=== PATIENT | male | born 1975 | race Caucasian/White ===

== ENCOUNTER 2016-11-18 12:43 | Emergency (ER) | payer OTHER ==
[2016-11-18] MEDS ORDERED: SODIUM CHLORIDE 0.9% 500 ML IV STA (13:05)
--- NOTE | 2016-11-18 13:08 | ED ---
General Adult HPI - General Chief complaint: Arrhythmia/Palpitations Stated complaint: Irregular Heartbeats Time Seen by Provider: 11/18/16 13:00 Source: patient, RN notes reviewed Mode of arrival: ambulatory Limitations: no limitations - History of Present Illness Initial comments: This is a 41-year-old male who presents emergency Department with a past medical history significant for high cholesterol and high blood pressure and a history of arrhythmias. Patient states today he felt his heart racing and was having much more frequently than normal psychiatric emergency department. Patient states that the episodes, last about 10 seconds and then they subsided. Patient does not know the name of a specific arrhythmia that he has been diagnosed with but he has not been placed on any medications for it. Patient denies any chest pain today patient denies illicit breathing or shortness of breath. Patient denies any episodes of dizziness lightheadedness or near syncopal episodes. Patient denies headache patient denies numbness weakness. Patient denies any recent fever or chills or cough. Patient denies any leg swelling or calf tenderness. - Related Data Previous Rx's Medication Instructions Recorded Metoprolol Tartrate 25 mg PO DAILY #30 tab 11/18/16 Allergies Allergy/AdvReac Type Severity Reaction Status Date / Time No Known Allergies Allergy Verified 11/18/16 12:59 Review of Systems ROS Statement: Those systems with pertinent positive or pertinent negative responses have been documented in the HPI. ROS Other: All systems not noted in ROS Statement are negative. Past Medical History Past Medical History: Hyperlipidemia, Hypertension History of Any Multi-Drug Resistant Organisms: None Reported Additional Past Surgical History / Comment(s): sinus surgery, knee surgery Past Psychological History: No Psychological Hx Reported Smoking Status: Former smoker Past Alcohol Use History: None Reported Past Drug Use History: None Reported General Exam - General Exam Comments Initial Comments: GENERAL: Patient is well-developed and well-nourished. Patient is nontoxic and well- hydrated and is in mild distress. ENT: Neck is soft and supple. No significant lymphadenopathy is noted. Oropharynx is clear. Moist mucous membranes. Neck has full range of motion without eliciting any pain. EYES: The sclera were anicteric and conjunctiva were pink and moist. Extraocular movements were intact and pupils were equal round and reactive to light. Eyelids were unremarkable. PULMONARY: Unlabored respirations. Good breath sounds bilaterally. No audible rales rhonchi or wheezing was noted. CARDIOVASCULAR: There is a regular rate and rhythm without any murmurs gallops or rubs. ABDOMEN: Soft and nontender with normal bowel sounds. No palpable organomegaly was noted. There is no palpable pulsatile mass. SKIN: Skin is clear with no lesions or rashes and otherwise unremarkable. NEUROLOGIC: Patient is alert and oriented x3. Cranial nerves II through XII are grossly intact. Motor and sensory are also intact. Normal speech, volume and content. Symmetrical smile. MUSCULOSKELETAL: Normal extremities with adequate strength and full range of motion. No lower extremity swelling or edema. No calf tenderness. LYMPHATICS: No significant lymphadenopathy is noted PSYCHIATRIC: Normal psychiatric evaluation. Normal interpersonal interactions appears functionally intact in deals appropriately with others. No signs of depression. No signs of anxiety. Limitations: no limitations Course Vital Signs 11/18/16 11/18/16 11/18/16 12:59 13:36 13:40 Temperature 98.6 F Pulse Rate 66 71 Pulse Rate [ 79 Bilateral Radial] Respiratory 16 15 Rate Blood Pressure 143/84 132/85 O2 Sat by Pulse 98 100 Oximetry Medical Decision Making - Medical Decision Making EKG shows a normal sinus rhythm at 70 bpm HI interval 124 QRS is 98 QT interval 368 QTC is 397. Patient's EKG shows no ST segment elevation or depression or T wave abnormalities are noted. Patient had this sensation of a palpitation again so we were able to get a EKG EKG showed a rate of about 150 beats a minute which was consistent with a flutter though it read it as a atrial fibrillation I do believe the patient was in a flutter with a 2-[address] Cleary in the EKG he thought EKG showed SVT the patient kept going in and out of it while in the emergency department. Dr. López want to see him in his office so I sent the patient out with a prescription of metoprolol - Lab Data Result diagrams: 11/18/16 13:10 11/18/16 13:10 Lab Results 11/18/16 11/18/16 11/18/16 Range/Units 13:10 13:10 13:10 WBC 14.4 H (3.8-10.6) k/uL RBC 5.05 (4.30-5.90) m/uL Hgb 16.7 (13.0-17.5) gm/dL Hct 47.7 (39.0-53.0) % MCV 94.4 (80.0-100.0) fL MCH 33.1 (25.0-35.0) pg MCHC 35.0 (31.0-37.0) g/dL RDW 12.1 (11.5-15.5) % Plt Count 251 (150-450) k/uL Neutrophils % 77 % Lymphocytes % 16 % Monocytes % 4 % Eosinophils % 1 % Basophils % 1 % Neutrophils # 11.0 H (1.3-7.7) k/uL Lymphocytes # 2.3 (1.0-4.8) k/uL Monocytes # 0.6 (0-1.0) k/uL Eosinophils # 0.2 (0-0.7) k/uL Basophils # 0.1 (0-0.2) k/uL PT (9.0-12.0) sec INR (<1.1) APTT (22.0-30.0) sec Sodium 142 (137-145) mmol/L Potassium 4.4 (3.5-5.1) mmol/L Chloride 102 (98-107) mmol/L Carbon Dioxide 24 (22-30) mmol/L Anion Gap 16 mmol/L BUN 14 (9-20) mg/dL Creatinine 0.90 (0.66-1.25) mg/dL Est GFR (MDRD) Af Amer >60 (>60 ml/min/1.73 sqM) Est GFR (MDRD) Non-Af >60 (>60 ml/min/1.73 sqM) Glucose 88 (74-99) mg/dL Calcium 9.9 (8.4-10.2) mg/dL Magnesium 2.0 (1.6-2.3) mg/dL Total Bilirubin 0.6 (0.2-1.3) mg/dL AST 29 (17-59) U/L ALT 49 (21-72) U/L Alkaline Phosphatase 79 (38-126) U/L Total Creatine Kinase 126 (55-170) U/L CK-MB (CK-2) 0.8 (0.0-2.4) ng/mL CK-MB (CK-2) Rel Index 0.6 Troponin I <0.012 (0.000-0.034) ng/mL Total Protein 7.7 (6.3-8.2) g/dL Albumin 4.7 (3.5-5.0) g/dL TSH 1.480 (0.465-4.680) mIU/L Free T4 0.90 (0.78-2.19) ng/dL 11/18/16 Range/Units 13:10 WBC (3.8-10.6) k/uL RBC (4.30-5.90) m/uL Hgb (13.0-17.5) gm/dL Hct (39.0-53.0) % MCV (80.0-100.0) fL MCH (25.0-35.0) pg MCHC (31.0-37.0) g/dL RDW (11.5-15.5) % Plt Count (150-450) k/uL Neutrophils % % Lymphocytes % % Monocytes % % Eosinophils % % Basophils % % Neutrophils # (1.3-7.7) k/uL Lymphocytes # (1.0-4.8) k/uL Monocytes # (0-1.0) k/uL Eosinophils # (0-0.7) k/uL Basophils # (0-0.2) k/uL PT 10.5 (9.0-12.0) sec INR 1.0 (<1.1) APTT 27.1 (22.0-30.0) sec Sodium (137-145) mmol/L Potassium (3.5-5.1) mmol/L Chloride (98-107) mmol/L Carbon Dioxide (22-30) mmol/L Anion Gap mmol/L BUN (9-20) mg/dL Creatinine (0.66-1.25) mg/dL Est GFR (MDRD) Af Amer (>60 ml/min/1.73 sqM) Est GFR (MDRD) Non-Af (>60 ml/min/1.73 sqM) Glucose (74-99) mg/dL Calcium (8.4-10.2) mg/dL Magnesium (1.6-2.3) mg/dL Total Bilirubin (0.2-1.3) mg/dL AST (17-59) U/L ALT (21-72) U/L Alkaline Phosphatase (38-126) U/L Total Creatine Kinase (55-170) U/L CK-MB (CK-2) (0.0-2.4) ng/mL CK-MB (CK-2) Rel Index Troponin I (0.000-0.034) ng/mL Total Protein (6.3-8.2) g/dL Albumin (3.5-5.0) g/dL TSH (0.465-4.680) mIU/L Free T4 (0.78-2.19) ng/dL Disposition Clinical Impression: Supraventricular tachycardia Disposition: HOME SELF-CARE Condition: Good Instructions: Supraventricular Tachycardia (ED) Prescriptions: Metoprolol Tartrate 25 mg PO DAILY #30 tab Time of Disposition: 14:42
[2016-11-18 13:24] LABS: Basophils # (A) 0.1 k/uL (0-0.2); Basophils % (A) 1 %; CH 33.1; CHCM 35.2; Eosinophils # (A) 0.2 k/uL (0-0.7); Eosinophils % (A) 1 %; HCT 47.7 % (39.0-53.0); HDW 2.45; HGB 16.7 gm/dL (13.0-17.5); Luc # (Auto) 0.25; Luc % (Auto) 2; Lymphocytes # (A) 2.3 k/uL (1.0-4.8); Lymphocytes % (A) 16 %; MCH 33.1 pg (25.0-35.0); MCV 94.4 fL (80.0-100.0); Mean Platelet Volume 7.9; Monocytes # (A) 0.6 k/uL (0-1.0); Monocytes % (A) 4 %; Neutrophils % (A) 77 %; RBC 5.05 m/uL (4.30-5.90); RDW 12.1 % (11.5-15.5); WBC 14.4 k/uL (3.8-10.6); WBC (Perox) 13.12
--- NOTE | 2016-11-18 13:30 | XR ---
EXAMINATION TYPE: XR chest 2V DATE OF EXAM: 11/18/2016 1:27 PM COMPARISON: NONE HISTORY: Dysrhythmia today. TECHNIQUE: Frontal and lateral views of the chest are obtained. FINDINGS: There is no focal air space opacity, pleural effusion, or pneumothorax seen. The cardiac silhouette size is within normal limits. The osseous structures are intact. IMPRESSION: No acute cardiopulmonary process.
[2016-11-18 13:33] LABS: Partial Thromboplastin Time 27.1 sec (22.0-30.0); Prothrombin Time 10.5 sec (9.0-12.0)
[2016-11-18 13:37] LABS: ALT 49 U/L (21-72); AST 29 U/L (17-59); Alkaline Phosphatase 79 U/L (38-126); Anion Gap 16 mmol/L; Blood Urea Nitrogen 14 mg/dL (9-20); Calcium 9.9 mg/dL (8.4-10.2); Carbon Dioxide 24 mmol/L (22-30); Chloride 102 mmol/L (98-107); Glucose 88 mg/dL (74-99); Non-African American GFR(MDRD) >60 (>60 ml/min/1.73 sqM); Potassium 4.4 mmol/L (3.5-5.1); Sodium 142 mmol/L (137-145); Total Bilirubin 0.6 mg/dL (0.2-1.3); Total Protein 7.7 g/dL (6.3-8.2)
[2016-11-18 13:50] LABS: Creatine Kinase 126 U/L (55-170)
[2016-11-18 14:01] LABS: Creatine Kinase MB 0.8 ng/mL (0.0-2.4); Troponin I <0.012 ng/mL (0.000-0.034)
[2016-11-18] MEDS ORDERED: METOPROLOL TARTRATE 25 MG TAB PO STA (14:44)
[2016-11-18 14:47] VITALS: TEMP 97.8
[2016-11-18 15:23] VITALS: BP 132/81; PULSE 70; RESP 15
== END 2016-11-18 15:23 | disposition home or self-care (01) ==
LOC: EC 12:43
DX: I47.1 Supraventricular tachycardia (principal); Z87.891 Personal history of nicotine dependence
CPT/HCPCS: 36415; 71020; 80053; 82550; 82553; 83735; 84439; 84443; 84484; 85025; 85610; 85730; 93005; 96360; 99285